=== PATIENT | female | born 1970 ===

== ENCOUNTER 2021-01-02 23:35 | Emergency (ER) | payer OTHER ==
[2021-01-02 23:39] VITALS: RESP 18
[2021-01-03 01:12] VITALS: BP 134/87; PULSE 64; TEMP 97.8
--- NOTE | 2021-01-03 01:34 | ED ---
General Adult HPI - General Chief complaint: Recheck/Abnormal Lab/Rx Stated complaint: Covid Test Source: patient Mode of arrival: ambulatory Limitations: no limitations - History of Present Illness Initial comments: Patient here for covid test, refused medical examination - Related Data Allergies Allergy/AdvReac Type Severity Reaction Status Date / Time No Known Allergies Allergy Verified 01/02/21 23:39 Review of Systems ROS Statement: Those systems with pertinent positive or pertinent negative responses have been documented in the HPI. ROS Other: All systems not noted in ROS Statement are negative. Past Medical History Additional Past Medical History / Comment(s): tyroid History of Any Multi-Drug Resistant Organisms: None Reported Past Surgical History: No Surgical Hx Reported Past Psychological History: No Psychological Hx Reported Smoking Status: Never smoker Past Alcohol Use History: None Reported Past Drug Use History: None Reported General Exam Limitations: no limitations Course Vital Signs 01/02/21 01/03/21 23:37 01:11 Temperature 98.0 F 97.8 F Pulse Rate 79 64 Respiratory 18 18 Rate Blood Pressure 136/85 134/87 O2 Sat by Pulse 100 99 Oximetry Medical Decision Making - Lab Data Lab Results 01/02/21 Range/Units 23:50 Coronavirus (PCR) Not Detected (Not Detectd) Disposition Clinical Impression: Lab test negative for COVID-19 virus Disposition: HOME SELF-CARE Is patient prescribed a controlled substance at d/c from ED?: No Referrals: None,Stated [Primary Care Provider] - 1-2 days Time of Disposition: 01:34
== END 2021-01-03 01:41 | disposition home or self-care (01) ==
LOC: EC 23:35
DX: Z20.822 Contact with and (suspected) exposure to COVID-19 (principal)
CPT/HCPCS: 87635; 99282